=== PATIENT | female | born 1985 | race African-American/Black ===

== ENCOUNTER 2018-12-31 17:27 | Emergency (ER) | payer OTHER, SELFPAY ==
[2018-12-31 17:32] VITALS: BP 123/82; PULSE 93; RESP 20; O2SAT 100
[2018-12-31] MEDS: SODIUM CHLORIDE 0.9% 1,000 ML 1000 ML IV (18:00)
[2018-12-31 18:31] LABS: Add Manual Diff / Slide Review NO; Basophils Absolute Auto 100 /uL (0-100); Basophils Percent Auto 0.9 % (0-2); Eosinophils Absolute Auto 100 /uL (0-450); Eosinophils Percent Auto 0.9 % (2-4); Hematocrit 33.4 % (36-46); Hemoglobin 10.9 g/dL (12.0-16.0); Lymphocytes Absolute Auto 1800 /uL (1100-4500); Lymphocytes Percent Auto 23.2 % (25-40); Mean Corpuscular HGB Conc 32.5 % (30-36); Monocytes Absolute Auto 500 /uL (0-900); Monocytes Percent Auto 6.5 % (3-14); Neutrophils Absolute Auto 5400 /uL (1500-7000); Neutrophils Percent Auto 68.5 % (50-75); Platelet Count 310 X10^3/uL (150-400); Red Blood Cell Count 4.33 X10^6/uL (4.0-5.2); Red Cell Distribution Width 18.2 % (11.6-14.8); White Blood Cell Count 7.9 X10^3/uL (4.5-11.0)
[2018-12-31 18:40] LABS: Blood Urea Nitrogen 8 mg/dL (7-17); Calcium 9.4 mg/dL (8.4-10.2); Carbon Dioxide 24 mmol/L (22-32); Chloride 99 mmol/L (98-107); Estimated Glomerular Filt Rate > 60.0 mL/min (>60); Glucose 92 mg/dL (70-100); HEMOLYSIS < 15 (0-50); Potassium 3.6 mmol/L (3.4-5.1); Sodium 133 mmol/L (137-145)
--- NOTE | 2018-12-31 18:59 | ED.NAVMDI ---
HPI - Nausea/Vomiting/Diarrhea General Chief complaint: Nausea/Vomiting/Diarrhea Stated complaint: 7 WEEKS , HEADACHE, DIZZY WHEN STANDING Time Seen by Provider: 12/31/18 18:01 Source: patient Mode of arrival: Ambulatory Limitations: no limitations History of Present Illness HPI Narrative: Patient is a approximately 7 weeks EGA here for evaluation of nausea. Some vomiting but mostly nausea. Some loose stools. She states that she has had little oral intake over the past day or so. States she did not feel this way with her 1st child. Has some lower abdominal cramping. Decreased urine output. No vaginal bleeding. Related Data Previous Rx's Medication Instructions Recorded ondansetron 4 mg PO Q6H PRN #14 tab 12/31/18 Allergies Allergy/AdvReac Type Severity Reaction Status Date / Time Iodine and Iodide Containing Allergy Verified 12/31/18 17:36 Produc Review of Systems Constitutional Constitutional: Denies fever(s) Cardiovascular Cardiovascular: Denies chest pain and Denies dyspnea Respiratory Respiratory: Denies dyspnea Gastrointestinal Gastrointestinal: Reports cramping, Reports nausea and Reports vomiting Genitourinary Genitourinary: Denies dysuria and Denies vaginal discharge Musculoskeletal Musculoskeletal: Denies myalgias and Denies arthralgias Integumentary/Breasts Skin/Breast: Denies rash Neurologic Neurologic: Denies behavioral changes Psychiatric Psychiatric: Denies behavioral changes Hematologic/Lymphatic Hematologic/Lymphatic: Denies easy bleeding and Denies easy bruising Patient History Medical History Patient denies medical problems (Acute) Social History Smoking Status: Never smoker Substance Use Type: does not use Exam Initial Vital Signs Initial Vital Signs: Vital Signs Pulse Rate 93 H 12/31/18 17:32 Respiratory Rate 20 12/31/18 17:32 Blood Pressure 123/82 12/31/18 17:32 Pulse Oximetry 100 12/31/18 17:32 Const General: cooperative, healthy appearing, comfortable and well developed Orientation: alert, awake and oriented x3 HENMT Head: normal to inspection and normocephalic Resp Effort & Inspection: normal respiratory effort Auscultation: clear to auscultation bilaterally Cardio Rate: regular rate Rhythm: regular rhythm GI Inspection: non-distended Palpation: soft, No firm and No tender Skin Lesions: no lesions Rashes: no rashes Neuro General: alert and awake Cognition: normal cognition Speech: speech normal Extrem General: normal to inspection and capillary refill normal Psych Appearance: grossly normal and well kempt Course Orders Ordered: ED Orders 12/31/18 18:21 Basic Metabolic Panel Stat Complete Blood Count AUTO DIFF Stat HCG Quantitative Stat Discontinued Medications Sodium Chloride (Normal Saline 0.9%) 1,000 mls @ 1,000 mls/hr IV BOLUS ONE Stop: 12/31/18 19:01 Last Infusion: 12/31/18 19:12 Dose: 0 mls/hr Documented by: Admin: 12/31/18 18:00 Dose: 1,000 mls/hr Documented by: JANIS Ondansetron HCl (Zofran) 4 mg IV NOW ONE Stop: 12/31/18 19:00 Last Admin: 12/31/18 19:06 Dose: 4 mg Documented by: JANIS Ondansetron HCl (Zofran Odt Prepack) 1 bottle MISC SEEINSTR ONE Stop: 12/31/18 19:56 Last Admin: 12/31/18 20:15 Dose: 1 bottle Documented by: JANIS Vital Signs Vital signs: Vital Signs - 8 hr 12/31/18 17:32 12/31/18 19:00 12/31/18 20:12 Pulse Rate 93 H 75 70 Respiratory Rate 20 17 17 Blood Pressure 123/82 Blood Pressure [Left Arm] 110/89 115/69 Pulse Oximetry 100 100 100 MDM - Nausea/Vomiting/Diarrhea Lab Data Attestation: I reviewed the patient's lab results. Result diagrams: 12/31/18 18:21 12/31/18 18:21 Labs: Lab Results 12/31/18 12/31/18 12/31/18 Range/Units 18:21 18:21 18:21 WBC 7.9 (4.5-11.0) X10^3/uL RBC 4.33 (4.0-5.2) X10^6/uL Hgb 10.9 L (12.0-16.0) g/dL Hct 33.4 L (36-46) % MCV 77.0 L (80-100) fL MCH 25.0 L (26-34) PG MCHC 32.5 (30-36) % RDW 18.2 H (11.6-14.8) % Plt Count 310 (150-400) X10^3/uL Neut % (Auto) 68.5 (50-75) % Lymph % (Auto) 23.2 L (25-40) % [place] % (Auto) 6.5 (3-14) % Eos % (Auto) 0.9 L (2-4) % Baso % (Auto) 0.9 (0-2) % Neut # (Auto) 5400 (0983-9805) /uL Lymph # (Auto) 1800 (6093-0134) /uL [place] # (Auto) 500 (0-900) /uL Eos # (Auto) 100 (0-450) /uL Baso # (Auto) 100 (0-100) /uL Sodium 133 L (137-145) mmol/L Potassium 3.6 (3.4-5.1) mmol/L Chloride 99 (98-107) mmol/L Carbon Dioxide 24 (22-32) mmol/L BUN 8 (7-17) mg/dL Creatinine 0.50 L (0.52-1.04) mg/dL Estimated GFR > 60.0 (>60) mL/min BUN/Creatinine Ratio 16.0 (6-22) Glucose 92 (70-100) mg/dL Calcium 9.4 (8.4-10.2) mg/dL HCG, Quant [id number] mIU/mL Urine Dip Bedside Urine Glucose Negative Bedside Urine Bilirubin - Negative Bedside Urine Ketone - Negative Urine Specific [place] 1.010 Bedside Urine Occult Blood - Negative Bedside Urine pH 6.0 Bedside Urine Protein - Negative Bedside Urine Urobilinogen - Negative Bedside Urine Nitrite - Negative Bedside Urine Leukocytes - Negative Esterase MDM Narrative Medical decision making narrative: Patient has ketones in her urine. This does fit the decreased oral intake and the nausea and the diarrhea that she has had over the past couple days. I do suspect this is related. She is not having any vaginal bleeding. She reports feeling somewhat better after medications and fluids in the ER. No indication for antibiotics. We did discuss nausea medication the importance of staying hydrated. She was given return precautions and follow-up instructions. She expressed understanding and agreement plan. Discharge Plan Departure Patient Disposition: Home Clinical Impression: Nausea and vomiting during Discharge Date/Time: 12/31/18 20:20 Instructions: Maren May Improve Nausea Symptoms in Activity Restrictions/Additional Instructions: Take the medications as directed and as needed. Contact your primary provider/OB provider for a follow-up. Be sure to increase your fluid intake. Return to the emergency department for any new or worsening symptoms Prescriptions: New ondansetron 4 mg tablet,disintegrating 4 mg PO Q6H PRN (Reason: nausea and vomiting) Qty: 14 RF: 0
[2018-12-31 19:00] VITALS: BP 110/89; PULSE 75; RESP 17; O2SAT 100
[2018-12-31] MEDS: ONDANSETRON 4 MG/2 ML INJ IV (19:06)
[2018-12-31 19:21] LABS: HCG Quantitative /Beta subunit 160610 mIU/mL
[2018-12-31 20:12] VITALS: BP 115/69; PULSE 70; RESP 17; O2SAT 100
[2018-12-31] MEDS: ONDANSETRON 4 MG ODT PREPACK 1 BOTTLE MISC (20:15)
== END 2018-12-31 20:20 | disposition home or self-care (01) ==
PROVIDERS: Emergency Provider Emergency Medicine
DX: O21.9 Vomiting of pregnancy, unspecified (principal); O21.0 Mild hyperemesis gravidarum; Z3A.08 8 weeks gestation of pregnancy
CPT/HCPCS: 36415; 80048; 81003; 84702; 85025; 96361; 96374; 99283; 99284; J2405